=== PATIENT | male | born 1945 | race Caucasian/White ===

== ENCOUNTER 2021-08-07 07:54 | Emergency (ER) | payer MEDICARE ==
[~2021-08-07 07:54] MED LIST: EPINEPHrine 10 ML SYRINGE (0.1 MG/ML) ONE
[2021-08-07] MEDS ORDERED: ALTEPLASE 50 MG VIAL IV STA (08:11)
[2021-08-07] MEDS ORDERED: EPINEPHrine 4 MG in DEXTROSE 5% IN WATER 250 ML IV ONE ×4 (08:16→08:30)
[2021-08-07] MEDS ORDERED: SODIUM CHLORIDE 0.9% 50 ML MINI-BAG IV ONE (09:11)
--- NOTE | 2021-08-07 10:07 | ED ---
CPR HPI - General Chief Complaint: Cardiac Arrest/CPR Stated Complaint: Cardiac arrest Time Seen by Provider: 08/07/21 07:54 Source: EMS Limitations: altered mental status - History of Present Illness Initial Comments: 75-year-old male with no reported past medical history presents to the emergency department in cardiac arrest. EMS provided the history. They state that the tiarra cody had recently been traveling. The left [place] on Friday and arrived home on Friday. The patient was complaining of some lower calf pain, chills and a mild cough. He had a total health visit with his primary care yesterday. They were given order an ultrasound of his lower extremities to be performed today. They did place him on steroids and an antibiotic. This morning the awoke and heard a thump. She found the patient had passed out and slid down the wall. He did suffer a minor head trauma. The patient was complaining that he was extremely short of breath. EMS was called. On scene the patient was alert and oriented 4. EKG was performed which demonstrated left bundle branch block. Patient had stable blood pressure. He was administered nitro and aspirin. Repeat vitals demonstrated bradycardia and hypotension and the patient went into asystole. He had CPR for 15 minutes prior to hospital arrival. Remainder of HPI is limited Place: home - Related Data Allergies Allergy/AdvReac Type Severity Reaction Status Date / Time No Known Allergies Allergy Verified 08/07/21 12:27 Review of Systems ROS Statement: Those systems with pertinent positive or pertinent negative responses have been documented in the HPI. ROS Other: All systems not noted in ROS Statement are negative. General Exam Limitations: altered mental status General appearance: other (unresponsive to verbal or tactile stimuli) Head exam: Present: other (central forehead abrasion) Eye exam: Present: other (fixed, dilated 8 mm) ENT exam: Present: mucous membranes dry Respiratory exam: Present: other (no spontanous respirations) Cardiovascular Exam: Present: other (no spontaneous heart sounds) Extremities exam: Present: other (no purposeful movement) Neurological exam: Present: other (unresponsive to verbal or painful stimuli) Skin exam: Present: pallor Medical Decision Making - Medical Decision Making Upon arrival patient was promptly placed in trauma 2. A thorough history and physical exam was performed. IV access was established in the bilateral upper extremities with 18 gauges. Patient had been intubated by EMS using a 7 tube. I did visually confirm placement using the glidescope. Tube was in appropriate position and secured 24 cm at the teeth. Bilateral breath sounds auscultated. We did continue CPR and began to administer epinephrine every 3 minutes. Patient did receive a total of 8 doses. Repetitive pulse ox demonstrated pulseless electrical activity and asystole. Patient never had a palpable pulse. Bedside ultrasound was performed which demonstrated little to no cardiac activity. Patient was started on an epinephrine drip. He was additionally given TPA 50 mg for suspected PE. CPR was continued for 25 minutes without any return of cardiac activity. Family was able to come in and witness CPR. They did request that we stop as the patient has had 55 minutes of CPR at this time. Time of was called at 840. I did call and speak with the office clerk routine for Dr. Frausto. I spoke with the medical transcription radiology. Case number is [id number]. Patient released by medical transcription radiology. [facility] contacted for possible donation Critical Care Time Critical Care Time: Yes Critical Care Time: 40 minutes Disposition Clinical Impression: Cardiac arrest Disposition: Referrals: Tahir Frausto MD [Primary Care Provider] - 1-2 days Preliminary Cause of : cardiac arrest
== END 2021-08-07 11:30 | disposition expired ==
LOC: EC 07:54
DX: I46.9 Cardiac arrest, cause unspecified (principal)
CPT/HCPCS: 99291; 92950; 96365; J0171 ×2; J2997; 37195